=== PATIENT | male | born 1950 | race Caucasian/White ===

== ENCOUNTER 2016-12-21 11:07 | Emergency (ER) | payer MEDICARE ==
[~2016-12-21] VITALS: Ht 177.8 cm; Wt 112.7 kg
[~2016-12-21 11:07] MED LIST: ASPI325T PO; CARV12.5 PO; COUM1TAB17 PO; DARB100SYR IV; FISH120012 PO; INSUR SC; NEPHTA PO; Omeprazole PO; RENA1TAB PO; RENV2TAB PO; TYLE325T5 PO; VITA100066 PO
[2016-12-21] MEDS ORDERED: VELP5CHW PO (11:24)
[2016-12-21] MEDS ORDERED: VANCOMYCIN HCL 1,000 MG, VIAL MATE ADAPTER 1 EACH in D5W 250 ML IV ONE (12:15)
[2016-12-21 12:16] LABS: BASO # 0.1 K/mm3 (0.0-0.2); BASO % 0.9 % (0.0-1.0); EOS # 0.1 K/mm3 (0.0-0.50); LARGE UNSTAINED CELL # 0.1 K/mm3 (0.0-0.4); LARGE UNSTAINED CELL % 0.9 % (0.0-4.0); LYMPH # 0.5 K/mm3 (1.5-4.5); LYMPH % 5.8 % (24.0-44.0); MEAN CORPUSCULAR HEMOGLOBIN 34.8 pg (27.0-33.0); MEAN CORPUSCULAR HGB CONC 34.8 g/dl (32.0-36.5); MEAN CORPUSCULAR VOLUME 99.9 fl (80.0-96.0); MONO # 0.5 K/mm3 (0.0-0.8); MONO % 6.7 % (0.0-5.0); NEUTROPHILS # 6.3 K/mm3 (1.8-7.7); NEUTROPHILS % 84.8 % (36.0-66.0); PLATELET COUNT, AUTOMATED 191 k/mm3 (150-450); WHITE BLOOD COUNT 7.4 K/mm3 (4.0-10.0)
[2016-12-21 12:38] LABS: ALBUMIN 3.5 GM/DL (3.2-5.2); ALBUMIN/GLOBULIN RATIO 0.67 (1.00-1.93); BILIRUBIN,TOTAL 0.9 MG/DL (0.2-1.0); CALCIUM LEVEL 8.5 MG/DL (8.8-10.2); CREATININE FOR GFR 8.48 MG/DL (0.70-1.30); GLOMERULAR FILTRATION RATE 6.8 (>49); POTASSIUM SERUM 3.7 MEQ/L (3.5-5.1); TOTAL PROTEIN 8.7 GM/DL (6.4-8.2)
[2016-12-21 12:43] LABS: ERYTHROCYTE SEDIMENTATION RATE 67 mm/hr (0-20)
--- NOTE | 2016-12-21 12:44 | REP ---
Clinical: Pain. Technique: AP, lateral, bilateral oblique views of the right foot. Comparison: 08/30/2015. Findings: Age-related osteopenia and degenerative changes are appreciated along with vascular calcifications. No acute fracture dislocation. No periosteal reaction. No obvious findings to suggest osteomyelitis. Surrounding soft tissues are grossly unremarkable and without subcutaneous emphysema or radiodense foreign body. Impression: Osteopenia and degenerative changes. No acute fracture dislocation. No radiographic evidence to suggest osteomyelitis. Signed by Julián Barraza MD 12/21/2016 12:35 P
[2016-12-21 13:42] VITALS: BP 152/81
[2016-12-21] MEDS ORDERED: BACITRACIN OINT 30GM TOP PRN (13:45)
== END 2016-12-21 13:44 | disposition home or self-care (01) ==
LOC: M ED 11:07
DX: L03.115 Cellulitis of right lower limb (principal); E11.621 Type 2 diabetes mellitus with foot ulcer; E11.22 Type 2 diabetes mellitus with diabetic chronic kidney disease; I12.9 Hypertensive chronic kidney disease with stage 1 through stage 4 chronic kidney disease, or unspecified chronic kidney disease; N18.9 Chronic kidney disease, unspecified; G47.30 Sleep apnea, unspecified; E78.00 Pure hypercholesterolemia, unspecified; Z99.2 Dependence on renal dialysis; Z79.4 Long term (current) use of insulin; Z79.01 Long term (current) use of anticoagulants; Z79.82 Long term (current) use of aspirin; Z79.899 Other long term (current) drug therapy; Z88.0 Allergy status to penicillin; Z88.8 Allergy status to other drugs, medicaments and biological substances; Z95.0 Presence of cardiac pacemaker; Z98.84 Bariatric surgery status; Z90.5 Acquired absence of kidney

== ENCOUNTER 2016-12-23 08:33 | Inpatient (IN) | payer MEDICARE ==
[~2016-12-23] VITALS: Ht 177.8 cm; Wt 113.2 kg
[~2016-12-23 08:33] MED LIST changes: +VELP5CHW PO
[2016-12-23] MEDS ORDERED: CINA30TA PO (09:00)
[2016-12-23] MEDS ORDERED: ASPIRIN 81 MG CHEW TABLET PO SCH (09:00)
[2016-12-23] MEDS ORDERED: RENATAB5 PO (09:00)
[2016-12-23] MEDS: HEPARIN SOD (PORCINE) 5000 UNITS/ML VIAL SC SCH ×3 (09:00→20:01)
[2016-12-23 09:37] LABS: BASO % 0.5 % (0.0-1.0); EOS # 0.1 K/mm3 (0.0-0.50); EOS % 0.8 % (0.0-3.0); LARGE UNSTAINED CELL # 0.1 K/mm3 (0.0-0.4); LYMPH # 0.6 K/mm3 (1.5-4.5); LYMPH % 6.7 % (24.0-44.0); MEAN CORPUSCULAR HEMOGLOBIN 34.4 pg (27.0-33.0); MEAN CORPUSCULAR HGB CONC 34.8 g/dl (32.0-36.5); MEAN CORPUSCULAR VOLUME 98.7 fl (80.0-96.0); MONO # 0.5 K/mm3 (0.0-0.8); MONO % 6.6 % (0.0-5.0); NEUTROPHILS # 6.4 K/mm3 (1.8-7.7); NEUTROPHILS % 84.5 % (36.0-66.0); PLATELET COUNT, AUTOMATED 203 k/mm3 (150-450); RED CELL DISTRIBUTION WIDTH 14.8 % (11.5-14.5); WHITE BLOOD COUNT 7.6 K/mm3 (4.0-10.0)
--- NOTE | 2016-12-23 09:55 | REP ---
Clinical: Cerebrovascular accident . Comparison: 08/30/2015 . Findings: The mediastinum and cardiac silhouette are stable and within normal limits for portable technique. The patient is again noted to be status post sternotomy and pacemaker. The lung kerr are clear without acute consolidation, effusion, or pneumothorax. Skeletal structures are intact. Impression: No acute cardiopulmonary process appreciated. Signed by Julián Barraza MD 12/23/2016 09:46 A
[2016-12-23 09:56] LABS: INR 1.6
[2016-12-23 09:58] LABS: CALCIUM LEVEL 7.7 MG/DL (8.8-10.2); CREATININE FOR GFR 13.3 MG/DL (0.70-1.30); POTASSIUM SERUM 4.1 MEQ/L (3.5-5.1)
--- NOTE | 2016-12-23 10:02 | REP ---
Clinical: Altered mental status. Cerebrovascular accident . Comparison: 08/29/2014 . Findings: The ventricles, sulci, and cisterns are normal in position and appearance. Parish-white differentiation is maintained. No acute intracranial hemorrhage, mass/mass effect, pathology or trauma/injury. No evidence for acute infarction. No extra-axial fluid collection. Calvarium is intact. Paranasal sinuses and mastoid air cells are clear. Impression: Normal noncontrast head CT. No evidence for acute intracranial pathology or trauma/injury. Signed by Julián Barraza MD 12/23/2016 09:53 A
[2016-12-23] MEDS ORDERED: OMEP20CA3 PO (10:43)
[2016-12-23] MEDS ORDERED: ONDANSETRON 4MG/2ML VIAL (J2405) IV PRN (11:15)
[2016-12-23] MEDS ORDERED: WARF-20 PO (11:41)
[2016-12-23] MEDS ORDERED: GLUCOSE 4 GM CHEW TABLET PO PRN (12:15)
[2016-12-23] MEDS ORDERED: ACETAMINOPHEN TAB 650MG DOSE (2X325MG) PO PRN (12:15)
[2016-12-23] MEDS ORDERED: DEXTROSE 50% 50 ML SYRINGE IV PRN (12:15)
[2016-12-23] MEDS ORDERED: GLUCAGON FOR INJ 1 MG VIAL (J1610) SC PRN (12:15)
[2016-12-23] MEDS: HumaLOG INSULIN (NovoLOG) PER UNIT SC SCH ×3 (12:40→21:00)
[2016-12-23] MEDS: SUCROFERRIC OXYHYDROXIDE 500MG CHEW TAB (VELPHORO) PO SCH ×2 (12:46→20:00)
--- NOTE | 2016-12-23 13:42 | HPE ---
DATE OF ADMISSION: 12/23/2016 This is a patient of Dr. Elizabeth. He receives cardiology care at [facility] in [place]. 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 He has seen [facility] here in [place]. He may have see a neurologist in the past. CHIEF COMPLAINT: He awoke with blurred vision associated with some lightheadedness which appears to be vertigo. He woke this morning about 7:15 with these symptoms. He did not think that he had low blood sugar but he did eat some julián crackers and then a little bit later, tried his blood sugar and it was not low. His symptoms lasted 45 minutes. They appeared to be vertiginous. He has had this happen before. At that time, he was told he had "a mini stroke". No headache. No focal weakness. No paresthesias. He was treated in the emergency department recently for an ulcerated right great toe. He says the toe feels better than it has in a long time. PAST MEDICAL HISTORY: Notable for Coronary artery disease Coronary artery bypass graft (CABG) in 2012. Hypertension. Diabetes on insulin. Hypercholesterolemia. Obesity. Endstage renal disease on hemodialysis Friday, Friday, Friday. Status post nephrectomy. Diabetic neuropathy with chronic foot ulcers seeing Dr. Emmanuel. Atrial fibrillation on chronic Coumadin. PAST SURGICAL HISTORY: Notable for Coronary artery stenting and CABG. Knee arthroplasty. Left nephrectomy. Pacemaker insertion. Gastric sleeve. Fistula placement. What appear to be cataract extraction. ALLERGIES: ZETIA AND PENICILLIN MEDICATIONS AT HOME: As reviewed with pharmacy include: - vitamin D - regular insulin - Ellie-Eulalio - Tylenol - Coreg - Sensipar - omeprazole - iron - Coumadin in the usual dosing pattern, which works out to be just less than 28 mg per week. SOCIAL HISTORY: He has a smoking history. He does not use alcohol. 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 FAMILY HISTORY: Notable for a mother who at the age of 46 of melanoma. Father at 82 with colon cancer. REVIEW OF SYSTEMS: Notable for no headache. He had decreased blurry vision in his left eye, which has resolved. No cough. No shortness of breath. No orthopnea. No paroxysmal nocturnal dyspnea. No change in appetite. He has had some drainage from his right toe, otherwise unremarkable. PHYSICAL EXAMINATION: Temperature 97.6, pulse 62, respiratory rate 18, blood pressure 141/60, 100% in room air. He is awake, appropriately interactive. Pleasant and conversant. Body mass index (BMI) is 35.7. Faces are symmetrical. Pupils equal, round, and reactive. Show evidence of cataract extraction. Nasal septum is midline. Mucous membranes are moist. Neck is supple, thick. Breathing symmetrical. I/E ratio is 1:3. No wheezes, rales or rhonchi. No CVA tenderness. No sacral edema. Heart is distal sounding. Normal S1, S2. I appreciate no murmur, rub or gallop. Radial pulses are 2+. Capillary refill is less than 2 seconds. Abdomen is distended. Tympanic nontender. He has 2+ dorsalis pedis pulses bilaterally. He does have evidence of venostasis changes on both legs. There is a small medial eschar on the right great toe with scant clear drainage. Strength is symmetrical in the upper and lower extremities. White cell count 7.6, hemoglobin 0.3, platelets of 203. INR 1.6. Sodium 135, potassium 4.1, chloride 96, carbon dioxide 24, BUN 87, creatinine 13.3, lactic acid is 1.7, troponin 0.04. Blood cultures are pending. He does have a one of two positive blood cultures from 12/21/2016 at his emergency room visit, which was gram positive cocci, which is likely a contaminant based on the fact that it is only one of two. ASSESSMENT: This is a 66-year-old with likely transient ischemic accident (TIA). The patient will require a two-night hospital stay. In patient dialysis. PLAN: 1. Neurologic: I have asked for a neurologic consultation. Will check a fasting lipid panel. Continue aspirin. Repeat a CT scan tomorrow based on the fact that the patient has a pacemaker and MRI is available. I ordered a 2D echocardiogram and will monitor the patient on telemetry. 2. Endstage renal disease: The patient will be seen by Dr. Elizabeth with plans for dialysis per her instructions. 3. The patient has obstructive sleep apnea. I have asked him to bring his CPAP from home. 4. The patient has coronary artery disease and hypertension. Will continue his beta maine. 5. The patient has diabetes. He will be continued on insulin during his stay. 6. The patient has a history of atrial fibrillation. He is paced on monitor. He will continued on Coumadin 4 mg daily with daily INR. 7. The patient has left great toe foot ulcer, which can be monitored clinically. 8. Deep venous thrombosis (DVT) prophylaxis for now is heparin, although Coumadin is continued.
[2016-12-23 19:01] VITALS: BP 120/56
[2016-12-23 20:00] VITALS: BP 188/79
[2016-12-23] MEDS: OMEPRAZOLE 20 MG CAP PO SCH (20:00)
[2016-12-23] MEDS: CARVedilol 12.5 MG TAB PO SCH (20:02)
[2016-12-23] MEDS: WARFARIN SOD 4 MG TAB PO SCH (20:03)
[2016-12-23] MEDS: ASPIRIN 81 MG CHEW TABLET PO SCH (20:07)
[2016-12-23] MEDS: CINACALCET 30 MG TAB (SENSIPAR) PO SCH (20:07)
--- NOTE | 2016-12-23 21:33 | CR ---
DATE OF CONSULTATION: 12/23/2016 REFERRING PROVIDER: Dr. Carlos Wilcox REASON FOR CONSULTATION: Suspected TIA. HISTORY OF PRESENT ILLNESS: The patient is a 66-year-old male with past medical history significant for end-stage renal disease on hemodialysis Friday, Friday status post nephrectomy with hypertension, hyperlipidemia, insulin-dependent, hypercholesterolemia, history of coronary artery disease status post coronary artery bypass graft in 2012 as well as history of tobacco use, currently on Coumadin for atrial fibrillation with a subtherapeutic INR of 1.6. The patient awoke at 07:15 this morning with a visual disturbance. He states that his left visual lateral field demonstrated white streaks of light almost like lightning lasting approximately 40-45 minutes. The patient also experienced lightheadedness which he clarifies as not vertigo, but rather lightheadedness upon standing which improves with sitting. The patient states that approximately 30 years ago he had a similar incidence of visual disturbance although that was not described as white lightening, but rather black spots in both eyes. The patient does have a history of migraines and does not have any headache at the present time. With a subtherapeutic INR the patient was advised to go ahead and start aspirin 162 mg till his INR becomes therapeutic during this hospital stay. He has a pacemaker and cannot have an MRI. Head CT did not reveal any acute intracranial process. It has already been planned that the patient will receive a repeat head CT tomorrow morning to assess for any interval change to suggest an acute stroke. The patient's blood pressure does not reflect a vascular response to a stroke at the present time. Differentials at the present time include retinal attachment versus ocular migraine versus TIA. PAST MEDICAL HISTORY: Coronary artery disease, coronary artery bypass graft 2012, hypertension, insulin-dependent diabetes, hypercholesterolemia, obesity, end-stage renal disease on hemodialysis Friday, Friday, Friday status post nephrectomy, diabetic neuropathy with chronic foot ulcers seeing Dr. Emmanuel, atrial fibrillation currently on Coumadin with subtherapeutic INR. PAST SURGICAL HISTORY: Notable for coronary artery stenting and CABG, knee arthroplasty, left nephrectomy, pacemaker insertion, gastric sleeve, fistula placement of the right forearm, bilateral cataract surgeries. ALLERGIES: ZETIA, PENICILLIN. HOME MEDICATIONS: - vitamin D - insulin - Ellie-Eulalio - Tylenol - Coreg - Sensipar - omeprazole - iron - Coumadin currently dosed at 28 mg per week which was recently reduced dramatically SOCIAL HISTORY: Past tobacco use is present. The patient denies use of alcohol or illicit drugs. FAMILY HISTORY: Noncontributory. REVIEW OF SYSTEMS: 14-point review of systems obtained and is negative except as per HPI. PHYSICAL EXAMINATION: Blood pressure is 116/57, pulse rate 60, respiratory rate is 18, oxygenation 100%, temperature is 97.9 degrees Fahrenheit. The patient is awake, alert, oriented to person, place and time. Speech, language and comprehension are intact. Pupils are 3 mm, round and reactive to light. Visual kerr are full to confrontation. There is no facial asymmetry to activation. Palate elevates symmetrically. Tongue is midline. No weakness of sternocleidomastoids bilaterally. There is no pronator drift, although the right upper extremity was not fully tested due to the patient currently undergoing hemodialysis with his fistula in his right forearm. Coordination is without any gross ataxia or dysmetria. There is no focal deficits in his strength of the upper and lower extremities. Deep tendon reflexes are 3s at the triceps, biceps, patellas, absent at the Achilles. Babinski signs are mute bilaterally. Limited examination of the right lower extremity due to a ulcer on the dorsum of the right great toe. Chronic venous stasis changes noted more so on the right lower extremity than the left. Sensory is intact to light touch in all four extremities. Gait deferred due to the patient currently undergoing hemodialysis. ASSESSMENT: 66-year-old male currently receiving hemodialysis for end-stage renal disease with significant stroke risk factors including atrial fibrillation with a subtherapeutic INR of 1.6, hypertension, hyperlipidemia, insulin-dependent diabetes and a history of tobacco use, presenting with sudden visual disturbance of the left eye, the patient states occurring at 07:15 a.m. at the breakfast table while trying to drink a cup of coffee associated with lightheadedness. Differentials include TIA versus retinal detachment versus ocular migraine given the patient has remote history of migraine headaches. PLAN: At this point: 1. Repeat head CT tomorrow morning. MRI not possible due to the patient having a pacemaker. 2. Carotid ultrasound ordered. 3. Echocardiogram. 4. Continue telemetry monitoring. 5. PT, OT. 6. Recommend a complete ophthalmologic consultation to exclude any retinal cause of the patient's left eye visual disturbance. 7. Start aspirin. Agree with 162 mg daily dosage while the patient awaits modification to his current Coumadin dosing to reach a goal INR therapeutic level between 2 and 3. 8. Optimize hypertension, diabetes, hyperlipidemia. 9. The patient can followup with the neurology clinic in 4-6 weeks upon discharge. Case discussed with Dr. Carlos Wilcox.
[2016-12-23 22:00] VITALS: O2SAT 96
[2016-12-23 23:00] VITALS: O2SAT 95
[2016-12-23 23:59] VITALS: BP 126/62
[2016-12-24] VITALS (19 sets, daily range): BP systolic 106–148; BP diastolic 63–72; O2SAT 91–100
[2016-12-24] MEDS: ACETAMINOPHEN TAB 650MG DOSE (2X325MG) PO PRN (03:46)
[2016-12-24 05:21] LABS: BASO % 0.8 % (0.0-1.0); EOS # 0.1 K/mm3 (0.0-0.50); EOS % 1.9 % (0.0-3.0); LARGE UNSTAINED CELL # 0.1 K/mm3 (0.0-0.4); LARGE UNSTAINED CELL % 1.8 % (0.0-4.0); LYMPH # 0.8 K/mm3 (1.5-4.5); LYMPH % 11.7 % (24.0-44.0); MEAN CORPUSCULAR HEMOGLOBIN 34.3 pg (27.0-33.0); MEAN CORPUSCULAR HGB CONC 35.2 g/dl (32.0-36.5); MEAN CORPUSCULAR VOLUME 97.4 fl (80.0-96.0); MONO # 0.4 K/mm3 (0.0-0.8); MONO % 7.3 % (0.0-5.0); NEUTROPHILS # 4.3 K/mm3 (1.8-7.7); NEUTROPHILS % 76.5 % (36.0-66.0); PLATELET COUNT, AUTOMATED 189 k/mm3 (150-450); RED CELL DISTRIBUTION WIDTH 14.7 % (11.5-14.5); WHITE BLOOD COUNT 5.6 K/mm3 (4.0-10.0)
[2016-12-24 05:26] LABS: INR 1.73
[2016-12-24 05:38] LABS: ALBUMIN 2.9 GM/DL (3.2-5.2); ALBUMIN/GLOBULIN RATIO 0.63 (1.00-1.93); BILIRUBIN,DIRECT 0.2 MG/DL (0.0-0.2); BILIRUBIN,TOTAL 0.5 MG/DL (0.2-1.0); CALCIUM LEVEL 7.8 MG/DL (8.8-10.2); CREATININE FOR GFR 9.35 MG/DL (0.70-1.30); GLOMERULAR FILTRATION RATE 6.1 (>49); MAGNESIUM LEVEL 2.4 MG/DL (1.8-2.4); PHOSPHORUS LEVEL 3.7 MG/DL (2.5-4.9); POTASSIUM SERUM 4.3 MEQ/L (3.5-5.1); TOTAL PROTEIN 7.5 GM/DL (6.4-8.2)
[2016-12-24] MEDS: SUCROFERRIC OXYHYDROXIDE 500MG CHEW TAB (VELPHORO) PO SCH ×4 (07:22→17:11)
[2016-12-24] MEDS: HumaLOG INSULIN (NovoLOG) PER UNIT SC SCH ×4 (07:25→21:00)
--- NOTE | 2016-12-24 08:14 | REP ---
CT Head without contrast HISTORY: TIA COMPARISON: 12/23/2016 Areas of decreased attenuation are present in the right basal ganglia. These represent old lacunar infarctions. Areas of decreased attenuation are present in the periventricular white matter. This represents small-vessel ischemic disease. There is no intraparenchymal hemorrhage, acute infarct, mass or midline shift. The ventricular system and cortical sulci are dilated consistent with minimal volume loss. There is no extra cerebral collection. There is no fracture. The visualized sinuses are clear. IMPRESSION: 1. Old right basal ganglia lacunar infarctions. 2. Small vessel ischemic disease. 3. Minimal volume loss. Signed by Car Frost MD 12/24/2016 08:06 A
--- NOTE | 2016-12-24 08:37 | CR ---
DATE OF CONSULTATION: 12/23/2016 REQUESTING PHYSICIAN: Dr. Wilcox REASON FOR CONSULTATION: Management of end stage renal disease on hemodialysis. HISTORY OF PRESENT ILLNESS: Mr. Granados is a 66-year-old male, well known to our service with a past medical history of multiple chronic problems, including diabetes, coronary artery disease, hypertension, end stage renal disease requiring hemodialysis and atrial fibrillation. The patient was in his usual state of health until about 7:00 o'clock this morning when he awoke with visual blurring and lightheadedness. He denied any other associated symptoms, including nausea, vomiting, palpitations, syncope or presyncope. The symptoms lasted for approximately 30 minutes and then self resolved. He did not have any slurring of the speech, difficulty speaking, or any difficulty with movements. His blood sugar was not low at the time of the episode. He states that he had similar visual changes about 30 years ago and at that time he was told that he had a mini stroke. He is seen at the bedside in the emergency room now. He had a CAT scan , which was unrevealing. He denies any headache. Denies any focal weakness. He denies any recent hospitalizations. Of note, he was seen in the emergency department on 12/21/2016, for complaint of ulcer on the right great toe. He was given a dose of vancomycin and requested a followup outpatient with wound care. He sees Dr. Emmanuel regularly. PAST MEDICAL AND SURGICAL HISTORY: Significant for long-standing history of diabetes, hypertension, coronary artery disease, status post coronary artery bypass graft (CABG) in 2016, history of permanent pacemaker placement, history of atrial fibrillation on Coumadin, history of end stage renal disease on hemodialysis Friday, Friday, and Friday maintenance schedule via a right upper extremity fistula, history of left nephrectomy secondary to renal cell carcinoma , history of dyslipidemia, history of obesity, status post gastric sleeve, history of diabetic neuropathy, history of remote transient ischemic attack 30 years prior. Surgical history is significant for coronary angioplasty and CABG, knee arthroplasty, left nephrectomy, pacemaker placement, gastric sleeve procedure, and right upper extremity AV fistula. ALLERGIES: PENICILLIN and ZETIA. HOME MEDICATIONS: - Coumadin - Sensipar 60 mg daily - Renovite - vitamin D - Coreg - omeprazole - iron SOCIAL HISTORY: Ex smoker. Denies recreational drug use. Denies alcohol. Retired from [employer]. FAMILY HISTORY: Father at age 82 with colon cancer. Mother at age 46 from melanoma. REVIEW OF SYSTEMS: Denies headache. Denies syncope or presyncope. Denies chest pain, palpitations, shortness of breath, nausea, vomiting, diarrhea. Denies slurred speech. Positive for resolved visual blurriness and lightheadedness. Positive for right toe ulcer. The remainder of the review of systems is negative. PHYSICAL EXAMINATION: Afebrile. Temperature 97.9. Respiratory rate 18, blood pressure 144/60, pulse oximetry 100% on room air. GENERAL: The patient is awake, alert. In no acute distress. He is oriented times four. HEENT: Pupils are equal, round and reactive. Extraocular muscles are intact. Tongue is midline. Mucous membranes are moist. NECK: Supple. LUNGS: Clear to auscultation bilaterally without wheeze, rales or rhonchi on room air. CARDIOVASCULAR: S1, S2. Normal rate. 2+ radial pulse. No significant sacral or peripheral edema. ABDOMEN: Obese. Nontender. EXTREMITIES: Right upper extremity fistula with thrill and bruit. Range of motion intact in all four extremities. Right great toe with small open ulcer on medial aspect with scant clear drainage. NEUROLOGIC: Alert and oriented times four. No focal deficit appreciated. Conversational and appropriately interactive. PSYCHIATRIC: Appropriate mood and affect. LABORATORY DATA: White count 7.6, hemoglobin 11.3, platelets 203, INR 1.6. Sodium 135, potassium 4.1, BUN 87, lactic acid 1.7, troponin negative times one. Blood cultures drawn and pending. IMAGING: Head CT on 12/23/2016 showed no evidence of acute intracranial pathology or trauma. Chest x-ray on 12/23/2016 showed no acute cardiopulmonary process appreciated. INPATIENT MEDICATIONS: - aspirin 162 mg daily - carvedilol 12.5 mg by mouth at night - Sensipar 60 mg daily - heparin 5000 units subcutaneously every 12 hours - insulin - Prilosec 20 mg daily - Velphoro 500 mg by mouth with meals - Coumadin 4 mg by mouth daily PROBLEMS: 1. End stage renal disease on hemodialysis Friday, Friday and Friday maintenance schedule. The patient will be dialyzed today per his maintenance schedule. He states that on Mondays he usually requires about 5.5 kg ultrafiltration to compensate for the fluids and other intake over the weekend. Today, I will ultrafiltrate him 3 kg to avoid fluctuations in blood pressure while he is here for complaints of neurologic symptoms. 2. Presumed transient ischemic attack. CT of the head in the emergency room was unremarkable. The patient continues on aspirin. Neurology consultation is pending. The patient is on telemetry. He is pending a 2D echo. 3. History of atrial fibrillation. Status post pacemaker. His INR is subtherapeutic currently. He continues on Coumadin with daily INR checks. He is also currently on heparin subcutaneously for deep vein thrombosis (DVT) prophylaxis, which we will continue until his INR is in the therapeutic range. 4. Hypertension. Blood pressure is well controlled on home antihypertensives. 5. Right great toe ulcer. At this time, this does not look infected. The patient states that he last saw Dr. Emmanuel 2 weeks ago and at that time it was not felt that the ulcer required further treatment. Continue with local wound care and clinical monitoring. 6. Secondary hyperparathyroidism. The patient continues on Sensipar and Velphoro. We will check a phosphorous and corrected calcium in the morning. JUWAN
[2016-12-24] MEDS: HEPARIN SOD (PORCINE) 5000 UNITS/ML VIAL SC SCH ×2 (10:06→21:24)
[2016-12-24] MEDS: ASPIRIN 81 MG CHEW TABLET PO SCH (10:06)
--- NOTE | 2016-12-24 10:20 | IPN ---
DATE: 12/24/2016 Mr. Granados is feeling well today. He has no further visual impairment and no focal weakness. No difficulty speaking. No paraesthesia. Feels back to baseline. Temperature 96.9, pulse 69, respiratory rate 18, blood pressure 132/63, 95% on room air. No significant arrhythmia on monitor. Negative fluid balance of 2840 after having 3500 off during dialysis yesterday. He is awake, appropriately interactive, pleasantly conversant. Breathing symmetrical and rested. Heart is distant sounding. Normal S1, S2. No arrhythmia on monitor. Abdomen soft, doughy, nontender. No significant lower extremity edema. White cell count 5.6, hemoglobin 10.6 and platelets of 189. BUN is 51 and creatinine 6.1. Repeat head CT is unchanged from yesterday as read by Dr. Frost. My assessment is as follows: 66-year-old with suspected transient ischemic accident (TIA) in the setting of subtherapeutic international normalized ratio (INR). Plan will be as follows: 1. Neurologic. I have discussed this case by phone with Dr. Rg yesterday. Continue with aspirin until INR is therapeutic. I have adjusted his Coumadin dosing to 8 more, stable level. Repeat CT scan is unremarkable. 2. Ophthalmologic. Patient will see Dr. Cole later today. I did discuss the case with him yesterday. 3. Patient has end-stage renal disease. Dr. Elizabeth is in charge of dialysis currently. Patient did tolerate dialysis well yesterday. 4. Patient has obstructive sleep apnea (RASHAUN). He is unable to bring his home continuous positive airway pressure (CPAP) in obstructive sleep apnea in, and respiratory has provided it to him. 5. Patient has a right great toe ulcer. I have consulted Dr. Emmanuel at patient request. 6. Patient has coronary artery disease and hypertension. Blood pressure is reasonably controlled with the current setting. 7. Patient has diabetes. On insulin during his stay. 8. Patient has a history of atrial fibrillation. He is on the monitor. INR is subtherapeutic. Dosing has been adjusted. 9. Deep venous thrombosis (DVT) prophylaxis is currently heparin.
--- NOTE | 2016-12-24 13:33 | REP ---
DUPLEX CAROTID SONOGRAPHY: HISTORY: TIA. FINDINGS: Antegrade flow was observed in both vertebral arteries. RIGHT CAROTID: The right common carotid artery is unremarkable. There is mild mixed plaquing in the bulb, proximal ICA, and proximal ECA on two-dimensional scanning. Color flow and spectral Doppler interrogation are unremarkable on the right. VELOCITY CHART, RIGHT CAROTID: Right CCA PSV 95 cm/s Right ICA PSV 108 EDV 24 Right ECA PSV 94 Right ICA/CCA ratio, normal 1.1 IMPRESSION: 16-49% category narrowing in the ICA on the right side by Doppler velocity criteria. LEFT CAROTID: The left common carotid artery is unremarkable. There is moderate mixed plaquing in the bulb, proximal ICA, and proximal ECA on two-dimensional scanning. Color flow and spectral Doppler interrogation demonstrate very slight elevation of systolic velocity in the ICA. VELOCITY CHART, LEFT CAROTID: Left CCA PSV 120 cm/s Left ICA PSV 126 EDV 37 Left ECA PSV 92 Left ICA/CCA ratio, normal 1.1 IMPRESSION: 50-79% category narrowing in the left ICA by Doppler velocity criteria, probably near the lower end of this range. Signed by Jori Calixto MD 12/24/2016 04:33 P
[2016-12-24] MEDS: WARFARIN SOD 4 MG TAB PO SCH (17:11)
[2016-12-24] MEDS: OMEPRAZOLE 20 MG CAP PO SCH (17:14)
[2016-12-24] MEDS ORDERED: TROPICAMIDE 1% OPHTH SOLN 2ML OU ONE (18:30)
[2016-12-24] MEDS ORDERED: PHENYLEPHRINE 2.5% OPHTH SOL 2ML OU ONE (18:30)
[2016-12-24] MEDS ORDERED: TETRACAINE 0.5% OPHTH SOLN 4ML OU ONE (18:30)
--- NOTE | 2016-12-24 20:55 | ECGEPIP ---
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
[2016-12-24] MEDS: CINACALCET 30 MG TAB (SENSIPAR) PO SCH (21:23)
[2016-12-24] MEDS: CARVedilol 12.5 MG TAB PO SCH (21:23)
--- NOTE | 2016-12-24 21:34 | ECGEPIP ---
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
[2016-12-25] VITALS (17 sets, daily range): BP systolic 115–156; BP diastolic 67–78; O2SAT 96–100
[2016-12-25] MEDS: ACETAMINOPHEN TAB 650MG DOSE (2X325MG) PO PRN (00:56)
[2016-12-25 05:45] LABS: BASO % 0.4 % (0.0-1.0); EOS # 0.1 K/mm3 (0.0-0.50); EOS % 1.6 % (0.0-3.0); LARGE UNSTAINED CELL # 0.2 K/mm3 (0.0-0.4); LARGE UNSTAINED CELL % 3.3 % (0.0-4.0); LYMPH # 0.8 K/mm3 (1.5-4.5); MEAN CORPUSCULAR HEMOGLOBIN 34.1 pg (27.0-33.0); MEAN CORPUSCULAR HGB CONC 35.1 g/dl (32.0-36.5); MEAN CORPUSCULAR VOLUME 97.3 fl (80.0-96.0); MONO # 0.5 K/mm3 (0.0-0.8); MONO % 8.5 % (0.0-5.0); NEUTROPHILS % 71.2 % (36.0-66.0); PLATELET COUNT, AUTOMATED 220 k/mm3 (150-450); RED CELL DISTRIBUTION WIDTH 14.2 % (11.5-14.5); WHITE BLOOD COUNT 5.6 K/mm3 (4.0-10.0)
[2016-12-25 05:49] LABS: INR 1.69
--- NOTE | 2016-12-25 07:06 | IPN ---
DATE: 12/24/2016 SUBJECTIVE: The patient is seen this morning at the bedside. He feels well. He reports no complaints. He had a repeat CT head done this morning, which showed no acute findings. He denies any recurrent episodes of lightheadedness or visual blurring. He also had a carotid Duplex done which showed a 50% to 79% narrowing in the left carotid, and a 16% to 49% narrowing on the right. The patient also reports that he had an echocardiogram done. I do not see the report available for review as of yet. He was seen by neurology, and he is pending ophthalmologic evaluation as well. REVIEW OF SYSTEMS: Negative for fever, headaches, changes in vision, difficulty speaking, paresthesia. Denies focal weakness. No nausea, vomiting or diarrhea. No palpitations, no chest pain, no shortness of breath. All review of systems is negative at this time. OBJECTIVE: VITAL SIGNS: Afebrile, 98.5, pulse 66, respiratory rate 18, blood pressure 115/65, 99% on room air. INTAKE AND OUTPUT: Dialysis yesterday removed 3500 mL. Weight in the bed scale today 114.5 kg. PHYSICAL EXAMINATION: GENERAL: The patient is awake, alert, appropriately interactive and conversational in no acute distress, oriented times four. HEENT: Extraocular muscles are intact. Mucous membranes are moist. NECK: Supple. HEART: S1, S2. Two plus radial pulses. No significant peripheral edema or dependent edema. ABDOMEN: Soft, obese, nontender, nondistended. CHEST: Clear to auscultation bilaterally without wheezes, rales, or rhonchi. NEUROLOGIC: No focal deficits appreciated. PSYCHIATRIC: Appropriate mood and affect. LABORATORY DATA: White count 5.6, hemoglobin 10.6, platelets 189. Sodium 137, potassium 4.3, bicarbonate 23, corrected calcium 8.6, phosphorus 3.7, magnesium 2.4. MICROBIOLOGY: Blood cultures no growth for 24 hours. IMAGING: Head CT 12/24/2016: No acute changes as compared to 12/23/2016. INPATIENT MEDICATIONS: Reviewed by myself. Patient was started on ophthalmic solution. His medications are otherwise unchanged from prior. PLAN: 1. Suspected transient ischemic attack (TIA). The patient's repeat CT scan did not show any acute findings. He has also had a carotid Duplex. He has also had an echocardiogram for which the report is pending. He is pending ophthalmologic evaluation to rule out any retinal causes of blurry vision. He has been seen by neurology. 2. History of atrial fibrillation. International normalized ratio (INR) is subtherapeutic. His Coumadin dose has been adjusted per the primary team. 3. End-stage renal disease on hemodialysis. The patient yesterday received a shortened treatment for three hours due to the inpatient dialysis unit schedule. Today he requested an additional dialysis session to make up his time. He was dialyzed for two hours with an additional 2 kg ultrafiltration which he tolerated well. 4. Hypertension. Blood pressure is well controlled at this time, and the patient continues on carvedilol. 5. Right great toe ulcer. Per patient, he is pending a teleconference with Dr. Emmanuel to look at the foot. He continues with local wound care for the time being. 6. Secondary hyperparathyroidism of renal origin. Correct calcium and phosphorus are both appropriate. The patient remains on Sensipar 60 mg daily, and he does not require oral phosphorus binders at this time.
[2016-12-25] MEDS: HumaLOG INSULIN (NovoLOG) PER UNIT SC SCH ×4 (07:30→21:00)
[2016-12-25 07:35] LABS: CALCIUM LEVEL 7.8 MG/DL (8.8-10.2); CREATININE FOR GFR 8.37 MG/DL (0.70-1.30); GLOMERULAR FILTRATION RATE 6.9 (>49); MAGNESIUM LEVEL 2.3 MG/DL (1.8-2.4); POTASSIUM SERUM 4.7 MEQ/L (3.5-5.1)
[2016-12-25] MEDS: SUCROFERRIC OXYHYDROXIDE 500MG CHEW TAB (VELPHORO) PO SCH ×4 (08:00→17:05)
[2016-12-25] MEDS ORDERED: INFLUENZA QUADRIVALENT PF VACCINE 0.5ML SYRINGE (90686) IM ONE (09:00)
--- NOTE | 2016-12-25 10:06 | CR ---
ADVANCED WOUND CARE CONSULTATION DATE OF CONSULTATION: 12/24/2016 The patient was consulted and evaluated via telemedicine on 12/24/2016. The consult requested by Dr. Car Giron, and ordered by Dr. Carlos Wilcox for treatment recommendations regarding a previous right diabetic foot wound. HISTORY OF PRESENT ILLNESS: A 66-year-old neuropathic diabetic male well-known to the wound care center, treated on two separate occasions for osteomyelitis involving the right great toe. Treatment included aggressive wound debridement, intravenous (IV) antibiotic therapy, referral for offloading footwear and hyperbaric oxygen therapy, all of which the patient completed. He was recently discharged from our wound care center with a right great toe. The patient is on dialysis and is a potential candidate for renal transplant. The patient was admitted to [facility] last week to rule out a transient ischemic attack (TIA) and according to the patient, his workup was negative. I have been asked to give wound care recommendations regarding his right foot and great toe. PHYSICAL EXAMINATION: A 66-year-old morbidly obese neuropathic diabetic male in no acute distress. The medial aspect of the right great toe just distal to the metatarsal head shows an area of superficial dry eschar measuring 0.9 cm x 1.3 cm with no appreciable depth of less than 0.1 cm. There was no drainage noted and no visible erythema seen. The patient is completely neuropathic. CLINICAL IMPRESSION: Healed right great toe, diabetic wound, Echevarria grade 3, now with local minor skin irritations secondary to footwear. Treatment at this time , no indication for debridement, protective foam dressing to be applied, no antibiotic therapy indicated at this time. The patient is well aware that he is to inspect his feet morning and night and that any new areas of concern would require discontinuation of his present footwear and reevaluation. Please call the wound care center to make arrangements for followup for the patient if you feel this is indicated. [facility]
[2016-12-25] MEDS: ASPIRIN 81 MG CHEW TABLET PO SCH (11:07)
[2016-12-25] MEDS: HEPARIN SOD (PORCINE) 5000 UNITS/ML VIAL SC SCH ×2 (11:09→21:00)
[2016-12-25] MEDS ORDERED: SLF 3 ML SYR IV PRN (13:00)
--- NOTE | 2016-12-25 13:33 | IPN ---
DATE: 12/25/2016 Mr. Granados is feeling well. He did complain of visual changes in both eyes last night, which were exceedingly fleeting, which he described as lightening like flashes in the upper outer periphery of both eyes that has totally resolved. He is feeling well today. Temperature 97.2, pulse 64, respiratory rate 18, blood pressure 115/69, 99% on nasal cannula. Intake and output notable for a negative fluid balance of -660. He awake, appropriately interactive, pleasantly conversant. Mucous membranes moist. Telling jokes. Neck supple. Breathing is symmetrical. No significant arrhythmia on monitor. Abdomen soft, doughy, nontender. White cell count is 5.6, hemoglobin 11.2, platelets of 220. INR is 1.69. BUN 49, creatinine 8.3. My assessment is as follows: This is a 66-year-old with suspected transient ischemic accident (TIA) or amaurosis fugax in the setting of subtherapeutic international normalized ratio (INR). Plan will be as follows: 1. Neurologic. I have previously discussed this with consulting neurologist. Last night I did also discuss the case with Dr. Cole, who recommends a transesophageal echocardiogram (ZACHARIAH). I contacted Dr. Harrell, who agrees to perform a ZACHARIAH when he is able to schedule that. Patient is currently nothing by mouth with the possibility of procedure today. If it is not scheduled for today, we will give him dinner and make him nothing by mouth at midnight for procedure tomorrow. 2. Patient has end-stage renal disease. Dr. Elizabeth is managing his dialysis. 3. Patient has obstructive sleep apnea (RASHAUN). Is using our continuous positive airway pressure (CPAP) machine. 4. Patient has a right great toe ulcer. Dr. Emmanuel had done a video consult. 5. Patient has coronary artery disease and hypertension. Blood pressure is reasonably controlled. 6. Patient has diabetes. He is currently nothing by mouth . Will use insulin as needed. 7. Patient has atrial fibrillation. INR is subtherapeutic. I have increased his Coumadin. 8. Deep venous thrombosis (DVT) prophylaxis is heparin until INR is therapeutic.
--- NOTE | 2016-12-25 15:39 | IPN ---
DATE: 12/25/2016 I was contacted this morning by Dr. Carlos Wilcox to perform a transesophageal echocardiogram on this patient to assess for cardiac source of embolism in this patient who has had an embolic eye event. Dr. Wilcox indicated that the eye physician, Dr. Cole, had requested this. I was reviewing the patient's chart later on today prior to further consideration of the transesophageal echocardiogram, and upon review of the chart, I learned that the patient has atrial fibrillation for which he is on warfarin and that he was subtherapeutic at the time of his presentation. The patient's prothrombin time (PT)/international normalized ratio (INR) on admission was 1.60 and therefore, I was concerned that the transesophageal echocardiogram was really not appropriate for this patient as the patient already has an obvious reason for cardiac emboli with atrial fibrillation and being subtherapeutic on the PT/INR. I discussed the case further with Dr. Carlos Wilcox who agreed but explained to me that it was the eye physician, Dr. Cole, who really wanted this study. I took it upon myself to contact Dr. Cole, who I contacted by mobile phone with phone call conversation occurring at 2:40 p.m. I explained to Dr. Cole that I did not think that transesophageal echocardiogram (ZACHARIAH) was very appropriate for this patient because he has a known likely source of cardiac systemic emboli; namely, atrial fibrillation with a subtherapeutic PT/INR. I proceeded to ask Dr. Cole how this will change his management for which he did not give me an answer but he said that ZACHARIAH was part of the standard workup for amaurosis fugax. When I questioned about how this was going to change his management, he simply said to me "have a nice day," and hung up. I then got back on the phone to speak to Dr. Carlos Wilcox to let him know what had transpired in my phone call with Dr. Cole. Both, myself and Dr. Carlos Wilcox, concur that ZACHARIAH will highly unlikely change this patient's management as he has high likelihood of cardiac source of embolism (atrial fibrillation with a subtherapeutic PT/INR); therefore, ZACHARIAH will not be performed at least not by Dr. Harrell.
[2016-12-25] MEDS: SLF 3 ML SYR IV SCH ×2 (15:49→21:34)
[2016-12-25] MEDS ORDERED: WARFARIN SOD 5 MG TAB PO SCH (17:00)
[2016-12-25] MEDS: OMEPRAZOLE 20 MG CAP PO SCH (17:05)
[2016-12-25] MEDS: CINACALCET 30 MG TAB (SENSIPAR) PO SCH (21:33)
[2016-12-25] MEDS: CARVedilol 12.5 MG TAB PO SCH (21:34)
[2016-12-26] VITALS (15 sets, daily range): BP systolic 103–144; BP diastolic 57–67; O2SAT 97–100
[2016-12-26] MEDS: ACETAMINOPHEN TAB 650MG DOSE (2X325MG) PO PRN ×2 (03:44→12:09)
[2016-12-26] MEDS: SLF 3 ML SYR IV SCH (03:45)
--- NOTE | 2016-12-26 05:46 | ECHO ---
DATE OF PROCEDURE: 12/25/2016 DATE OF : 1950 AGE: 66. REFERRING PROVIDER: Dr. Car Giron PATIENT LOCATION: Room 3216 REASON FOR THE ECHOCARDIOGRAM: Transient ischemic attack (TIA). 2D MEASUREMENTS: IVS: 1.5 cm LV: 4.1 cm LVPW: 1.3 cm LA: 4.7 cm Aorta: 3.5 cm IVC: 1.4 cm DOPPLER MEASUREMENTS: Peak velocity across the aortic valve: 1.9 m/s Peak velocity across the LVOT: 0.6 m/s Mitral E: 1.1, Maximum tricuspid valve velocity: 2.8 m/s 2D COMMENTS: 1. Normal left ventricular size with mildly increased left ventricular wall thickness. Left ventricular systolic function is normal, estimated at 60-65%. 2. Mildly enlarged left atrium. The right atrium may be minimally enlarged. The right ventricle appeared to be mildly enlarged in limited views. 3. The atrial septum appeared to be normal without evidence of defect or shunt. 4. Normal aortic root. The ascending aorta subjectively appeared to be enlarged. 5. No pericardial effusion seen. 6. Mildly calcified aortic valve. Leaflet excursion appeared to be normal. Mildly calcified mitral annulus with normal mitral valve leaflet motion. Normal tricuspid valve. The pulmonic valve and proximal pulmonary artery branches were not well visualized. 7. The inferior vena cava was normal in size, central venous pressure is most likely normal. DOPPLER: It detects trace aortic regurgitation, mild mitral regurgitation and moderate tricuspid regurgitation. The calculated pulmonary artery systolic pressure varied between 40-50 mmHg. Assessment of the left ventricular diastolic function was limited, the patient seems to be in atrial fibrillation. IMPRESSION: 1. Normal global left ventricular systolic function with mild concentric left ventricular hypertrophy. 2. Aortic valve sclerosis with trace aortic regurgitation and trivial aortic stenosis. 3. Mitral annulus calcification with mildly enlarged left atrium and mild mitral regurgitation. 4. Moderate tricuspid regurgitation with moderate pulmonary hypertension and mildly enlarged right atrium. 5. Subjectively, the ascending aorta appeared to be enlarged and I recommend a chest CT for reassessment. The aortic root seems to be normal. MTDD
[2016-12-26 05:49] LABS: BASO % 0.7 % (0.0-1.0); EOS # 0.1 K/mm3 (0.0-0.50); EOS % 1.4 % (0.0-3.0); LARGE UNSTAINED CELL # 0.1 K/mm3 (0.0-0.4); LARGE UNSTAINED CELL % 1.5 % (0.0-4.0); LYMPH # 0.9 K/mm3 (1.5-4.5); LYMPH % 12.5 % (24.0-44.0); MEAN CORPUSCULAR HEMOGLOBIN 35.7 pg (27.0-33.0); MEAN CORPUSCULAR VOLUME 99.4 fl (80.0-96.0); MONO # 0.5 K/mm3 (0.0-0.8); MONO % 7.9 % (0.0-5.0); NEUTROPHILS % 75.9 % (36.0-66.0); PLATELET COUNT, AUTOMATED 226 k/mm3 (150-450); RED CELL DISTRIBUTION WIDTH 14.5 % (11.5-14.5); WHITE BLOOD COUNT 6.6 K/mm3 (4.0-10.0)
[2016-12-26 05:54] LABS: INR 1.66
[2016-12-26 06:19] LABS: CREATININE FOR GFR 7.11 MG/DL (0.70-1.30); GLOMERULAR FILTRATION RATE 8.3 (>49); MAGNESIUM LEVEL 2.1 MG/DL (1.8-2.4); POTASSIUM SERUM 4.1 MEQ/L (3.5-5.1)
--- NOTE | 2016-12-26 06:51 | IPN ---
DATE: 12/25/2016 SUBJECTIVE: The patient is seen this morning at the bedside. His transesophageal echocardiogram (ZACHARIAH) was canceled. The patient denies any new complaints this morning except for fleeting sensation in his vision reported as lightning-like flashes which self resolved in a matter of seconds and did not recur. He otherwise is in good spirits. REVIEW OF SYSTEMS: Negative for headache, lightheadedness, chest pain, palpitations, shortness of breath, nausea, vomiting, diarrhea, slurred speech, trouble with focal movements. Remainder of review of systems is negative. OBJECTIVE: VITAL SIGNS: Temperature 97.2, pulse 64, respiratory rate 18, blood pressure 115/69. Pulse oximetry 99% on room air. INTAKE AND OUTPUT: 2500 removed with hemodialysis today. Weight in the bed scale 115.5 kg. PHYSICAL EXAMINATION: GENERAL: The patient is sitting upright, legs dangling off the bed, comfortable in no acute distress. Awake, alert, and oriented times four, appropriately interactive. HEENT: Extraocular muscles intact. Moist mucous membranes. NECK: Supple. CARDIAC: S1, S2. Regular rate. 2+ radial pulse. No significant peripheral edema. ABDOMEN: Soft, obese, nontender. RESPIRATORY: Clear to auscultation bilaterally. EXTREMITIES: Right upper extremity fistula with thrill and bruit. NEUROLOGIC: Alert and oriented times four. No focal deficits. PSYCHIATRIC: Appropriate mood and affect. LABORATORY DATA: White count 5.6, hemoglobin 11.2, platelets 220. Sodium 136, potassium 4.7, bicarbonate 25, magnesium 2.3, phosphorus 3.7, glucose 141. MICROBIOLOGY: Blood cultures with no growth for 48 hours. INPATIENT MEDICATIONS: Reviewed by myself. Coumadin dose was increased to 5 mg. Remainder of medications are unchanged from prior. ASSESSMENT AND PLAN: 1. Transient ischemic attack (TIA) in the setting of subtherapeutic international normalized ratio (INR). Neurology has evaluated the patient. Two serial CTs head with no acute findings. The patient's INR remains subtherapeutic and his Coumadin dose was increased by the primary team. His transesophageal echocardiogram (ZACHARIAH) was canceled as it would not change the management of the patient. He remains on 162 mg of daily aspirin until his INR becomes therapeutic. 2. End-stage renal disease on hemodialysis. The patient was dialyzed today per his maintenance schedule. 3. Hypertension. Patient's blood pressure is well controlled at this time on carvedilol. He is very compliant with interdialytic weight gain. 4. Secondary hyperparathyroidism of renal origin. The patient continues on Sensipar 60 mg daily, and Velphoro 500 mg with meals. His corrected calcium and phosphorus are both within goals. 5. Anemia of end-stage renal disease. Hemoglobin slightly above target. Erythropoietin stimulating agent currently on hold. 6. Right great toe ulcer. Per patient, he had a teleconference with Dr. Emmanuel, who felt that the wound was healing appropriately. MTDD
[2016-12-26] MEDS: SUCROFERRIC OXYHYDROXIDE 500MG CHEW TAB (VELPHORO) PO SCH ×2 (07:37→12:09)
[2016-12-26] MEDS: HumaLOG INSULIN (NovoLOG) PER UNIT SC SCH ×2 (07:40→12:09)
--- NOTE | 2016-12-26 09:41 | REP ---
CT CHEST WITHOUT CONTRAST: HISTORY: TIA. Comparison CT study August 29, 2014. CT FINDINGS: There is a unipolar pacemaker in the right heart via the left side. The patient is status post prior median sternotomy. Coronary artery grafts and vascular calcification are seen. These findings are all unchanged from comparison CT study August 29, 2014. No pleural or pericardial effusion is seen. No hilar or mediastinal mass or adenopathy is observed. There are a few calcific fabrice residuals in the hilar regions. There is a granulomatous calcification in each lower lobe. There are scattered tiny noncalcified granulomatous nodules bilaterally. These appear to be unchanged from the August 29, 2014 study. No suspicious pulmonary nodule or mass is seen. No infiltrate is noted. No bony destructive lesion is appreciated. There is some partially calcified fat necrosis in the pre-sternal soft tissues. This is unchanged. There is a 2.7 cm left adrenal nodule noted. This appears unchanged. It measured 27 mm to my measurement on the previous study as well. It contains Hounsfield unit measurements as low as negative 28 and is compatible with a benign adrenal adenoma. The left kidney is surgically absent as before. There are calcified gallstones in the gallbladder. IMPRESSION: Fairly extensive vascular calcification status post coronary artery bypass grafting. Pacemaker. No active cardiopulmonary disease. Signed by Jori Calixto MD 12/26/2016 02:42 P
[2016-12-26] MEDS: HEPARIN SOD (PORCINE) 5000 UNITS/ML VIAL SC SCH (09:58)
[2016-12-26] MEDS: ASPIRIN 81 MG CHEW TABLET PO SCH (09:58)
[2016-12-26] MEDS ORDERED: WARF-18 PO (12:17)
[2016-12-26] MEDS ORDERED: ASPI81TA PO (12:17)
--- NOTE | 2016-12-26 15:20 | DSES ---
DATE OF ADMISSION: 12/23/2016 DATE OF DISCHARGE: 12/26/2016 SPECIALISTS INVOLVED IN CARE: Dr. Bernabe, Dr. Elizabeth, Dr. Cole, Dr. Harerll. COMPLICATIONS: DURING STAY: None. PROCEDURES PERFORMED DURING STAY: Dialysis. DISCHARGE DIAGNOSES: 1. Amaurosis fugax. 2. Atrial fibrillation. 3. End-stage renal disease, on hemodialysis. 4. Obstructive sleep apnea, on continuous positive airway pressure. 5. Right great toe ulcer. 6. Coronary artery disease. 7. Hypertension. 8. Diabetes. This is a 3-dwes-car-year-old presented with impaired vision who was admitted to the hospitalist service. Seen in consultation by neurology, who considered the possibility of ophthalmologic disorder. Dr. Cole was consulted, who saw the patient in consultation. He suggested a transesophageal echocardiogram (ZACHARIAH). After further consultation with cardiology, it was thought that a transthoracic echo would perfectly appropriate, and there was no role for ZACHARIAH. During the course of the stay he was also followed by nephrology and received dialysis. A video consultation was obtained from Dr. Emmanuel in regard to his left great toe ulcer. Patient will followup with Dr. Emmanuel as scheduled. His dose of Coumadin has been difficult to maintain in the outpatient setting. We have adjusted his dose of Coumadin while he is here and added a baby aspirin in the meantime. He will have three times weekly blood draws to manage his INR and adjust his Coumadin dose. On the day of discharge he is feeling well. There are no complaints of pain, chest pain, shortness of breath. Temperature 97.6, pulse 65, respirations 18, blood pressure 144/65, 100% on room air. Awake, appropriately interactive, pleasantly conversant. Breathing is symmetrical and rested. No significant arrhythmia on the monitor. He is in atrial fibrillation. Abdomen soft, doughy, nontender. White cell count 6.6, hemoglobin 12.4, BUN 42, creatinine 7.1. DISCHARGE INSTRUCTIONS: Followup with dialysis tomorrow. PT/INR three times a week. Aspirin 162 mg by mouth daily, Coumadin 7.5 mg by mouth daily, dose to be adjusted. He is given a prescription for Coumadin 2.5 mg, 90 tablets, Tylenol 650 mg by mouth as needed for pain, Coreg 12.5 mg by mouth daily at bedtime, vitamin D supplement, Sensipar 60 mg by mouth daily at bedtime. Continue his home insulin dosing. Omeprazole 20 mg by mouth daily, iron supplement, and Ellie-Eulalio supplement.
--- NOTE | 2017-01-15 16:22 | IPN ---
DATE: 12/26/2016 SUBJECTIVE: The patient is seen this morning at the bedside. He feels well. He tolerated hemodialysis yesterday without any issues. He denies any other changes in vision or blurriness. No chest pain, palpitations, or shortness of breath. REVIEW OF SYSTEMS: Negative for headache, lightheadedness, chest pain, palpitations, shortness of breath, nausea, vomiting, diarrhea, slurred speech, trouble with focal movements. Remainder of review of systems negative. OBJECTIVE: Temperature 97.6, pulse 65, respiratory rate 18, blood pressure 144/65, pulse oximetry 100% on room air. Intake and output: Hemodialysis yesterday removed 2500 mL. Weight in the bed scale today 113.2 kg. GENERAL: The patient is sitting upright, legs dangling off the bed, comfortable in no acute distress. Awake, alert, oriented times four. Appropriately interactive. HEENT: Extraocular muscles intact. Moist mucous membranes. NECK: Supple. No jugular venous distention. CARDIAC: S1, S2, regular rate. Radial pulse 2+. No significant peripheral edema. No dependent edema. ABDOMEN: Soft, obese, nontender. RESPIRATORY: Clear to auscultation bilaterally without wheeze, rales, rhonchi. EXTREMITIES: Right upper extremity fistula with good thrill and bruit. NEUROLOGIC: Alert and oriented times four with no focal deficits. PSYCHIATRIC: Appropriate mood and affect. LABORATORY DATA: INR 1.6. Hemoglobin 12.4, platelets 226. Sodium 136, potassium 4.1, bicarbonate 26, magnesium 2.1, glucose 192. IMAGING: CT chest without contrast 12/26/2016: Fairly extensive vascular calcifications status post coronary artery bypass grafting, pacemaker. No active cardiopulmonary disease. A 2.7 cm left adrenal nodule, unchanged from 2015, compatible with benign adrenal adenoma. Left kidney surgically absent. Microbiology: Blood cultures December 23 remain with no growth. ASSESSMENT AND PLAN: 1. Transient ischemic attack in the setting of subtherapeutic INR with history of atrial fibrillation. The patient remains on aspirin 162 mg by mouth daily and Coumadin. His INR will be checked as an outpatient on hemodialysis three times weekly. 2. End-stage renal disease, on hemodialysis. The patient continues with his maintenance hemodialysis schedule. 3. Hypertension. The patient's blood pressure is controlled at this time. He is compliant with interdialytic weight gain. 4. Anemia of end-stage renal disease. Hemoglobin is above target. Erythropoietin-stimulating agents are on hold. 5. Right great toe ulcer. Clinically does not look infected, and per the patient he had a teleconference with Dr. Emmanuel, who felt that the wound was healing appropriately and no need for antibiotics at this time. edited: 01/20/2017 0717 jensf JUWAN
== END 2016-12-26 16:05 | disposition home or self-care (01) | DRG 123 ==
LOC: M ED 08:33 → M ED INP 11:12 → M PCU 18:50
PROVIDERS: ADMIT Internal Medicine; ATTEND Internal Medicine
DX: G45.3 Amaurosis fugax (principal); N18.6 End stage renal disease; N25.81 Secondary hyperparathyroidism of renal origin; I12.0 Hypertensive chronic kidney disease with stage 5 chronic kidney disease or end stage renal disease; E11.621 Type 2 diabetes mellitus with foot ulcer; E11.40 Type 2 diabetes mellitus with diabetic neuropathy, unspecified; I48.2 Chronic atrial fibrillation; G47.33 Obstructive sleep apnea (adult) (pediatric); I25.10 Atherosclerotic heart disease of native coronary artery without angina pectoris; Z79.01 Long term (current) use of anticoagulants; E66.9 Obesity, unspecified; E78.00 Pure hypercholesterolemia, unspecified; Z95.0 Presence of cardiac pacemaker; Z88.0 Allergy status to penicillin; Z88.8 Allergy status to other drugs, medicaments and biological substances; Z79.4 Long term (current) use of insulin; E78.5 Hyperlipidemia, unspecified; D64.9 Anemia, unspecified

== ENCOUNTER 2017-01-07 16:49 | Inpatient (IN) | payer MEDICARE ==
[~2017-01-07] VITALS: Ht 177.8 cm; Wt 114.1 kg
[~2017-01-07 16:49] MED LIST changes: +ASPI81TA PO; +CINA30TA PO; +OMEP20CA3 PO; +RENATAB5 PO; +WARF-18 PO; +WARF-20 PO
[2017-01-07] MEDS ORDERED: WARF-60 PO (17:06)
[2017-01-07] MEDS ORDERED: NS 500 ML IV ONE (17:30)
[2017-01-07] MEDS ORDERED: ACETAMINOPHEN TAB 650MG DOSE (2X325MG) PO ONE (17:30)
[2017-01-07 18:08] LABS: BASO % 0.2 % (0.0-1.0); EOS % 0.3 % (0.0-3.0); LARGE UNSTAINED CELL # 0.1 K/mm3 (0.0-0.4); LARGE UNSTAINED CELL % 0.7 % (0.0-4.0); LYMPH # 0.4 K/mm3 (1.5-4.5); LYMPH % 3.1 % (24.0-44.0); MEAN CORPUSCULAR HEMOGLOBIN 33.9 pg (27.0-33.0); MEAN CORPUSCULAR HGB CONC 34.1 g/dl (32.0-36.5); MEAN CORPUSCULAR VOLUME 99.3 fl (80.0-96.0); MONO # 0.5 K/mm3 (0.0-0.8); MONO % 3.6 % (0.0-5.0); PLATELET COUNT, AUTOMATED 163 k/mm3 (150-450); RED CELL DISTRIBUTION WIDTH 14.3 % (11.5-14.5)
[2017-01-07 18:15] LABS: INR 3.1
[2017-01-07 18:33] LABS: ALBUMIN 2.4 GM/DL (3.2-5.2); ALBUMIN/GLOBULIN RATIO 0.46 (1.00-1.93); BILIRUBIN,DIRECT 1.5 MG/DL (0.0-0.2); BILIRUBIN,TOTAL 2.1 MG/DL (0.2-1.0); CALCIUM LEVEL 8.8 MG/DL (8.8-10.2); CREATININE FOR GFR 10.5 MG/DL (0.70-1.30); GLOMERULAR FILTRATION RATE 5.3 (>49); POTASSIUM SERUM 4.7 MEQ/L (3.5-5.1); TOTAL PROTEIN 7.6 GM/DL (6.4-8.2)
--- NOTE | 2017-01-07 20:20 | REPUSA ---
Clinical history: Right upper quadrant pain. Findings: The pancreas is limited in visualization secondary to overlying bowel gas, but appears abdullahi sly unremarkable. The liver demonstrates uniform echotexture and echogenicity, with no mass lesions. The gallbladder contains echogenic shadowing foci. There is gallbladder wall thickening measuring up to 5 mm. The common bile duct measures 4 mm and is within normal limits. The right kidney measures 12 .2 x 5.0 x 5.7 cm . Diffuse cortical thinning is noted. There is no evidence of hydronephrosis or nep hrolithiasis. There is no ascites. Impression: 1. Cholelithiasis with mild gallbladder wall thickening. No biliary ductal dilatation or pericholecys tic free fluid. The findings are nonspecific. Follow-up is recommended as clinically indicated. 2. Chronic medical renal disease of the right kidney.
[2017-01-07] MEDS ORDERED: HumaLOG INSULIN (NovoLOG) PER UNIT SC SCH (21:00)
[2017-01-07] MEDS ORDERED: CARVedilol 12.5 MG TAB PO SCH (21:00)
[2017-01-07] MEDS ORDERED: LEVEMIR (INSULIN DETEMIR) 1 UNITS/0.01ML SC SCH (21:00)
[2017-01-07] MEDS ORDERED: ASPIRIN 325 MG TAB PO SCH (21:00)
[2017-01-07] MEDS ORDERED: ASPI325T PO (21:30)
[2017-01-07] MEDS ORDERED: ACETAMINOPHEN 500 MG TAB PO PRN (21:45)
[2017-01-07] MEDS ORDERED: ONDANSETRON 4MG/2ML VIAL (J2405) IV PRN (21:45)
[2017-01-07] MEDS ORDERED: DEXTROSE 50% 50 ML SYRINGE IV PRN (23:15)
[2017-01-07] MEDS ORDERED: GLUCOSE 4 GM CHEW TABLET PO PRN (23:15)
[2017-01-07] MEDS ORDERED: PIPERACILLIN/TAZOBACTAM SOD 2.25 GM in D5W MINI-BAG PLUS 50 ML IV SCH (23:15)
[2017-01-07] MEDS ORDERED: GLUCAGON FOR INJ 1 MG VIAL (J1610) SC PRN (23:15)
--- NOTE | 2017-01-08 00:07 | PHACANCOPD ---
PHARMACY VANCOMYCIN DOSING Pt Demographics Demographics Patient Age:66 , Weight:112.730 , Gender: male Adjusted Body Weight Date: 01/08/17, Adjusted Body Weight: [88.9] Kg Events Past 24 Hours Events Past 24 Hours: NO: Dialysis, Diuretic Therapy, Change in CrCl, Fever, Elevation in WBC, Pending Diagnostics, Pending Procedures, Other Vancomycin Vancomycin indication: Empiric treatment in dialysis pateint with fever Vancomycin Target Ranges: 15-20 mcg/ml Vancomycin Load Y/N: Yes Load Dose Date Time Vancomycin Load Dose: 2g iv Date: 01/08/17 Time: 02:00 Vancomycin Dose Date: 01/08/17. Current Vancomycin Dose: [1g iv after HD] Intermittent Dosing?: No Labs Labs Item Value Date Time White Blood Count 13.0 K/mm3 H 01/07/17 1751 Creatinine 10.50 MG/DL H 01/07/17 1751 Micro Microbiology 01/07/17 Blood Culture, Received Pending 01/07/17 Blood Culture, Received Pending 01/07/17 Respiratory Virus Panel (PCR) ([facility]) - Final, Complete Creatinine Clearance Date:01/08/17. Creatinine Clearance: [7.3ml/min.]. Pending Labs blood culture Assessment and Plan Maintaining Current Dose?: Yes Reason for dose change: No Dose Change Pharmacist Note Pharmacist Note Date: 01/08/17. Pharmacist note: PT is a 66 year old male being treated with empiric therapy for dialysis pt with fever goal trough 15-20 mcg/ml. The pt has previous therapy here at [facility] in august 2015. Pt reports an increase in dialysis frequency and currently receiving dialysis 5 times weekly. To achieve goal a 2g loading dose was started 01/08/17 @02:00. Maintenance therapy will consist of 1g iv after HD. We will continue to monitor and adjust dose as needed. [facility] Jan 08, 2017 00:07
[2017-01-08 00:16] VITALS: BP 138/71
--- NOTE | 2017-01-08 00:41 | REP ---
Portable chest, 05:58 p.m., single AP view, the patient semi upright: Comparisons are the portable chest dated 12/23/2016, PA and lateral chest dated 08/30/[address] dated 12/26/2016. The study is slightly underpenetrated, possibly a consequence of patient body habitus. Taking this into consideration the lung kerr are clear. Cardiac size is upper normal for portable positioning. The santa, mediastinum, and bony thorax are unremarkable. There are sternotomy wires and there is a pacemaker. These are unchanged. Impression: No acute cardiopulmonary findings. Under penetrated radiographic technique. Signed by Sander Arnold MD 01/07/2017 06:11 P
[2017-01-08 01:00] VITALS: BP 110/52
[2017-01-08] MEDS ORDERED: VANCOMYCIN 1000 MG/20 ML VIAL (J3370) As Ordered ONE ×2 (01:31→01:36)
[2017-01-08] MEDS: VANCOMYCIN HCL 1,000 MG, VIAL MATE ADAPTER 1 EACH in D5W 250 ML IV SCH ×2 (01:35→03:57)
[2017-01-08] MEDS ORDERED: NS 1,000 ML IV SCH (02:30)
[2017-01-08 05:10] VITALS: BP 90/40
--- NOTE | 2017-01-08 05:40 | HPE ---
DATE OF ADMISSION: 01/07/2017 PRIMARY CARE PROVIDER: Dr. Elizabeth. CHIEF COMPLAINT: Extreme weakness, unable to eat, off-and-on abdominal pain, and fever since yesterday. PAST MEDICAL HISTORY: 1. End-stage renal disease (ESRD) on hemodialysis, waiting for renal transplant. 2. Moderate pulmonary hypertension with tricuspid regurgitation. 3. Concentric ventricular hypertrophy. 4. Coronary artery history with history of coronary artery bypass graft (CABG). 5. Atrial fibrillation on Coumadin. 6. Obstructive sleep apnea on continuous positive airway pressure (CPAP). 7. Hypertension. 8. Diabetes. 9. History of amaurosis fugax. 10. Hypercholesterolemia. 11. Obesity. 12. Status post planned nephrectomy of the left. 13. Left adrenal nodule of size 2.7 cm. 14. Renal cell carcinoma on the left. 15. History of gastric sleeve surgery for obesity. 16. History if transient ischemic attack (TIA). 17. Diabetic neuropathy. 18. History of secondary hyperparathyroidism. 19. History of osteomyelitis of right great toe with history of right great toe ulcer which has healed. HISTORY OF PRESENT ILLNESS: This is a 66-year-old male with history of ESRD, last hemodialysis on yesterday, who presented to the hospital because of feeling weak and tired, unable to eat since yesterday evening after his dialysis. He also noted to have subjective fevers at home. The patient's dialysis has recently been increased and he is awaiting for renal transplant at this point. The patient also complains of cough for the past 3-4 days and some off-and-on abdominal pain, and some intermittent vomiting for unknown duration. In the emergency room, he was found to be febrile with a temperature of 102.8. He was also noted to have elevated white count with a white blood cell count (WBC) of 13 with 92% neutrophils, elevated lactate of 2.4, and abnormal liver function tests with an elevated total bilirubin of 2.1, alanine transaminase (AST) of 110, and alanine transaminase (ALT) of 100. The patient had an ultrasound of the liver and gallbladder done which showed cholelithiasis and mild gallbladder thickening. There was no biliary ductal dilatation or pericholecystic free fluid. The patient denied any shortness of breath, denied any diarrhea. He did have some vomiting. The patient is being admitted to the hospitalist service for evaluation of fever with abnormal liver function tests (LFTs) and probable sepsis. PAST SURGICAL HISTORY: 1. CABG in 2016. 2. History of permanent pacemaker placement. 3. Right upper extremity arteriovenous (AV) fistula. 4. Left nephrectomy. 5. Post gastric sleeve surgery. 6. Coronary angioplasty. 7. Knee arthroplasty. HOME MEDICATIONS: - aspirin 162.5 mg at bedtime - Coreg 12.5 mg at bedtime - colecalciferol 2000 units daily - Sensipar 60 mg at bedtime - Human regular insulin before meals and at bedtime as per sliding scale - omeprazole 20 mg daily - Velphoro 500 mg by mouth with meals - Ellie-Eulalio one tablet by mouth daily - Coumadin 6 mg at bedtime ALLERGIES: PENICILLIN AND EZETIMIBE. SOCIAL HISTORY: The patient denies smoking. Denies any alcohol abuse or recreational drug abuse. REVIEW OF SYSTEMS: All 10-point review of systems is negative except those mentioned in history of present illness (HPI). PHYSICAL EXAMINATION: VITAL SIGNS: Temperature maximum (T-max) of 102.8, then 97.6. Blood pressure 138/96, pulse oximetry 97% on room air, pulse 60, respiratory rate 18. GENERAL: Patient awake, alert, and oriented times three. HEENT: Normocephalic, atraumatic. Moist mucous membranes. Anicteric eyes. CHEST: Clear to auscultation. CARDIOVASCULAR: S1, S2 regular. No rub, murmur or gallop. ABDOMEN: Obese. Mildly tender in the epigastrium periumbilical region as well as right upper quadrant. Bowel sounds are present. EXTREMITIES: Chronic venous stasis changes. No edema. LABORATORY DATA: WBC 13, hemoglobin 9.9, platelets 163. Sodium 130, potassium 4.7, chloride 96, bicarbonate 27, BUN 62, creatinine 10.5, glucose 258, lactate 2.4, calcium 8.8, total bilirubin 2.1, direct bilirubin 1.5 , AST 110, ALT 100, alkaline phosphatase 134, albumin 2.4. INR 3.1. IMAGING: Gallbladder ultrasound as noted above. ASSESSMENT AND PLAN: This is a 66-year-old male admitted for evaluation of fever and abnormal liver function tests, elevated lactate and probable sepsis. PLAN: 1. Fever with abnormal liver function tests (LFTs): Probable sepsis however source of infection not yet determined. The patient did have a gallbladder ultrasound done which did not reveal any acute cholecystitis. However, the patient does have some tenderness in the right upper quadrant and has gallstones and so may have had transient biliary colic with the passage of the gallstone. However, in view of his fever, we will cover the patient with antibiotics. Empirically will give vancomycin and meropenem at this point. Blood cultures have been sent. We will de-escalate antibiotics according to further workup and culture reports. Elevated LFTs could also be due to ischemic liver injury or congestion . However pateint does not have any documented hypotensive episodes and volume status at this point is close to euvolemic. 2. End-stage renal disease (ESRD): Patient on hemodialysis Friday, Friday, Friday. Recently as per the patient, his dialysis schedule has been increased. The patient is due tomorrow. We will consult nephrology for maintenance hemodialysis. 3. Morbid obesity: The patient has a history of gastric sleeve procedure before. Stable at this point. 4. Obstructive sleep apnea (RASHAUN): The patient uses home CPAP which we will continue here. 5. Coronary artery disease with history of coronary artery bypass graft (CABG): Will continue with aspirin. No issues at this point. 6. Atrial fibrillation: Has a pacemaker in place. Will continue with Coreg and Coumadin. INR 3.1 will hold coumadin 2 days then restart. 7. Hyperparathyroidism: Will continue with Sensipar. 8. Hyperphosphatemia: Will continue with Velphoro. 9. Deep venous thrombosis (DVT) prophylaxis : pateint is on coumadin with supratherapeutic INR. 10. Gastrointestinal (GI) prophylaxis will continue with omeprazole. 11. Diabetes with diabetic neuropathy. Will continue with insulin as per sliding scale. 12. Hypertension. Will continue with Coreg. 13. Lactic acidosis : patient received 500 ml IVF in ED . Patient does not have any documented episodes of hypotension. will check 4 hour follow up lactate level and consider more IVF. Patient has ESRD so will have to be cautious with fluids. MTDD
[2017-01-08] MEDS ORDERED: SODIUM CHLORIDE 0.9% 1000 ML IV ONE (06:00)
[2017-01-08] MEDS ORDERED: MEROPENEM INJ 500 MG in D5W MINI-BAG PLUS 100 ML IV SCH (06:00)
[2017-01-08] MEDS ORDERED: HumaLOG INSULIN (NovoLOG) PER UNIT SC SCH (07:30)
[2017-01-08] MEDS ORDERED: SUCROFERRIC OXYHYDROXIDE 500MG CHEW TAB (VELPHORO) PO SCH (08:00)
[2017-01-08] MEDS ORDERED: SENOKOT S TAB PO SCH (09:00)
[2017-01-08] MEDS ORDERED: OMEPRAZOLE 20 MG CAP PO SCH (09:00)
--- NOTE | 2017-01-08 09:13 | RO ---
DATE OF PROCEDURE: 01/08/2017 PREPROCEDURE DIAGNOSIS: POSTPROCEDURE DIAGNOSIS: PROCEDURE: Endotracheal intubation. PROCEDURALIST: Dr. Mariela Townsend SKOOG MACHINE OPERATOR: None ANESTHESIA: None INDICATION: Acute Respiratory Arrest PROCEDURE: The patient was noted to have worsening of mental status, followed by unresponsiveness, along with labored breathing. It was decided to intubate the patient. While in the process of setting up for intubation, the patient became unresponsive and went into cardiac arrest. Cardiopulmonary resuscitation was started. The patient was urgently intubated with size #8 endotracheal tube. Position of endotracheal tube was confirmed by color change and bilateral equal auscultation of breath sounds. The endotracheal tube was fixed at 26 cm, lip level. The patient was bagged through the endotracheal tube and CPR was continued. JUWAN
[2017-01-08] MEDS ORDERED: EPINEPHrine 1MG/10ML SYRINGE 1.5IN ONE (10:41)
[2017-01-08] MEDS ORDERED: SODIUM BICARBONATE 8.4% INJ 50 ML SYRINGE ONE (10:41)
[2017-01-08] MEDS ORDERED: VANCOMYCIN HCL 1,000 MG, VIAL MATE ADAPTER 1 EACH in D5W 250 ML IV SCH (14:00)
[2017-01-08] MEDS ORDERED: CHECK TO SEE IF PATIENT IS RECEIVING DIALYSIS TODAY AND REFER TO THE VANCOMYCIN ORDER XX SCH (16:00)
[2017-01-08] MEDS ORDERED: CINACALCET 30 MG TAB (SENSIPAR) PO SCH (21:00)
--- NOTE | 2017-01-09 09:41 | IPN ---
DATE OF SERVICE: 01/08/2017 Patient was admitted last night. Patient was noted to have mild elevation of lactate in the 4-hour followup, so the patient was started on gentle hydration in lombardi developer. When patient was checked by staff, patient was noted to be poorly responsive, which was a definite change from his initial mental status on admission. He was also noted to have labored breathing. He was able to answer a few questions. We were urgently called to re-evaluate, and decision was made to transfer the patient in intensive care unit (ICU). While we were arranging for the transfer, they could not get a blood pressure and he was becoming more obtunded, so decision was made to intubate the patient before transfer. During the process of setting up for intubation, we lost the patient's pulse and so cardiopulmonary resuscitation (CPR) was started and MAX cart was called. Patient was urgently intubated. Position of endotracheal (ET) tube was confirmed with color change and auscultation of breath sounds. CPR was continued for 25 minutes with seven cycles of AP and two bicarbonate; however, there was no return of pulse on the monitor. There were either asystole or PEA. CPR was stopped after 25 minutes, and the patient was declared . Cause of was felt to be sudden cardiac .
--- NOTE | 2017-01-09 10:38 | DSES ---
DATE OF ADMISSION: 01/07/2017 DATE OF DISCHARGE: 01/08/2017 PRIMARY CARE PROVIDER: Humza Elizabeth MD DISCHARGE DIAGNOSES: 1. Acute respiratory arrest. 2. Sepsis. 3. End stage renal disease on hemodialysis. 4. Coronary artery disease with history of coronary artery bypass graft (CABG). 5. Moderate pulmonary hypertension with tricuspid regurgitation. 6. Obstructive sleep apnea on continuous positive airway pressure (CPAP). 7. Atrial fibrillation, has pacemaker in place, on Coumadin. 8. Hypertension. 9. Diabetes. 10. History of amaurosis fugax. 11. Obesity. 12. Hypercholesterolemia. 13. Left adrenal nodule size 2.7 cm. 14. History of renal cell carcinoma with nephrectomy on the left. 15. Diabetic neuropathy. 16. History of osteomyelitis of the right great toe. 17. History of gastric sleeve surgery for obesity. 18. Secondary hyperparathyroidism. 19. History of coronary angioplasty. HOSPITALIZATION COURSE: This is a 66-year-old male with end stage renal disease on hemodialysis, recently his hemodialysis schedule was changed and it was increased to five times per week and he was waiting for renal transplant. He presented to the hospital with weakness and tiredness, unable to eat for one day. In the emergency department, he was noted to be febrile to 102.8. His vitals were blood pressure of 138/67, pulse of 64, respiratory rate of 18, pulse oximetry 94% on CPAP. The patient was also noted to have abnormal liver function tests with elevated total bilirubin, elevated AST and ALT. The patient had an ultrasound of the gallbladder done in the emergency room, which did show cholelithiasis and mild gallbladder wall thickening; however, there was no pericholecystic free fluid and no biliary ductal dilation. On my examination, the patient did complain of intermittent off and on abdominal pain going on for a week. He also complained of some cough going on for 3 to 4 days. He was also noted to have elevated lactate of 2.4%, elevated WBC of 13 with 92% neutrophils. It was felt that the patient probably has infection of some undetermined source. The patient was admitted to the hospitalist service for sepsis, possibly intraabdominal. The patient was started on meropenem and vancomycin. The patient's 4 hour followup lactate came back 2.9. The patient did get 500 mL of fluid in the emergency room. The patient was also ordered another 1000 mL of IV fluid. The patient continued to use his BiPAP throughout the night. Early in the morning, the patient was noted to be poorly responsive when his vitals were being done by the nursing staff. His vitals showed pulse of 68, however, he was hypotensive and he was tachypneic. It was decided to intubate the patient urgently. When the patient was being set up for intubation, the patient became nonresponsive and pulse became nonpalpable. Cardiopulmonary resuscitation (CPR) was started urgently. Monitor was attached and it showed asystole and PEA. The patient was intubated and started on Ambu-bag. CPR was continued with seven cycles of epi and two ampules of bicarbonate. However, after 25 minutes of CPR, we were unable to get any pulse. The patient continued to be in asystole and PEA. At that point, CPR was stopped, and the patient was declared . Subsequently, blood culture came back positive, two out of two bottles, for gram-positive cocci in clusters. The cause of was felt to be due to acute respiratory arrest due to sepsis in the background of end stage renal disease, coronary artery disease, pulmonary hypertension, obstructive sleep apnea, and diabetes.
[2017-01-09] MEDS ORDERED: WARFARIN SOD 3 MG TAB PO SCH (21:00)
== END 2017-01-08 06:25 | disposition expired | DRG 871 ==
LOC: M ED 16:49 → M ED INP 21:41 → M MS5PR 01-08 02:26
PROVIDERS: ADMIT Internal Medicine Nephrology; ATTEND Internal Medicine Nephrology
DX: A41.9 Sepsis, unspecified organism (principal); N18.6 End stage renal disease; N25.81 Secondary hyperparathyroidism of renal origin; E87.2 Acidosis; E66.01 Morbid (severe) obesity due to excess calories; E78.00 Pure hypercholesterolemia, unspecified; I25.10 Atherosclerotic heart disease of native coronary artery without angina pectoris; I36.0 Nonrheumatic tricuspid (valve) stenosis; E11.9 Type 2 diabetes mellitus without complications; E11.40 Type 2 diabetes mellitus with diabetic neuropathy, unspecified; I48.91 Unspecified atrial fibrillation; Z79.01 Long term (current) use of anticoagulants; Z95.0 Presence of cardiac pacemaker; I27.2 Other secondary pulmonary hypertension; G47.33 Obstructive sleep apnea (adult) (pediatric); Z98.84 Bariatric surgery status; E27.8 Other specified disorders of adrenal gland; K80.20 Calculus of gallbladder without cholecystitis without obstruction; Z86.73 Personal history of transient ischemic attack (TIA), and cerebral infarction without residual deficits; Z88.0 Allergy status to penicillin; Z88.8 Allergy status to other drugs, medicaments and biological substances; E83.39 Other disorders of phosphorus metabolism